=== PATIENT | male | born 1970 | race Caucasian/White ===

== ENCOUNTER 2019-08-11 17:50 | Outpatient (CLI) | payer OTHER, SELFPAY ==
--- NOTE | ~2019-08-11 | XR_ITS ---
EXAMINATION: XR chest 2V EXAM DATE: 08/11/2019 18:09 INDICATION: Cough for one month. TECHNIQUE: Frontal and lateral projections of the chest obtained and reviewed. There is no prior tay dy for comparison. FINDINGS: The lungs are clear. There are no pleural effusions. The cardiomediastinal silhouette is within normal limits. There is no pneumothorax suspected. The bones and soft tissues are unremarkab le. IMPRESSION: Unremarkable chest x-ray exam. Reviewed, dictated and finalized at location A.
== END 2019-08-11 17:51 | disposition home or self-care (01) ==
LOC: ANHIMG 17:58
PROVIDERS: PCP Family Medicine; Visit Provider Family Medicine
DX: R05 Cough (principal)
CPT/HCPCS: 71046

== ENCOUNTER 2022-06-24 09:55 | Outpatient (CLI) | payer OTHER, SELFPAY ==
--- NOTE | ~2022-06-24 | MR_ITS ---
MRI of the abdomen: Clinical indication: Hepatic lesion. Technique: Coronal SSFSE ARC, WATER:coronal LAVA-FLEX, Coronal 2D FIESTA FatSat, Axial SSFSE BH ARC, Axial 3D DualEcho BH, Axial SSFSE-IR, Axial DWI b=500, Axial 2D FIESTA FatSat, pre and dynamic postco ntrast Axial LAVA ARC, postcontrast Coronal In and Opposed phase LAVA FLEX. Following intravenous adm inistration of 20 cc MultiHance gadolinium, T1-weighted fat-sat imaging was performed in the axial an d coronal planes. Findings: There is a 4.5 x 4.1 cm mass in the posterior medial, superior right hepatic lobe. This les ion is T1 hypointense, heterogeneously hyperintense on fluid sensitive sequences, and demonstrates pe ripheral, progressive, predominantly peripheral ring enhancement. There are multiple additional small er enhancing lesions, which are best seen on postcontrast images, the second largest lesion at the ex treme dome of the liver measuring 2.9 cm in diameter. There are several additional smaller subcentime ter enhancing lesions in the liver, not clearly visualized on noncontrast sequences. There is diffuse signal drop off in the remainder of the liver on out of phase images relative to in phase images, consistent with background diffuse fatty infiltration of the liver. Gallbladder is unremarkable. The common bile duct is nondilated. No filling defects are seen within t he CBD. No evidence of intrahepatic biliary ductal dilatation. The pancreatic duct is normal in size. Spleen, pancreas, adrenals, kidneys appear normal. The aorta and the paraaortic regions appear normal . Impression: Multiple hepatic masses, as detailed above, most consistent with hepatic metastatic disease. Largest lesion measures 4.5 x 4.1 cm. Correlate with any other relevant clinical history or recent imaging ex aminations. Consider tissue sampling as indicated to establish histologic diagnosis, although percuta neous biopsy may be difficult due to the relative superior location of the sizable lesions. Background diffuse fatty infiltration of the liver. Reviewed, dictated and finalized at [facility]. Impression: Multiple hepatic masses, as detailed above, most consistent with hepatic metast atic disease. Largest lesion measures 4.5 x 4.1 cm. Correlate with any other re levant clinical history or recent imaging examinations. Consider tissue samplin g as indicated to establish histologic diagnosis, although percutaneous biopsy may be difficult due to the relative superior location of the sizable lesions. Background diffuse fatty infiltration of the liver.
== END 2022-06-24 09:56 | disposition home or self-care (01) ==
PROVIDERS: PCP Family Medicine; Visit Provider Physician Assistant
DX: K76.9 Liver disease, unspecified (principal)
CPT/HCPCS: 74183; A9577

== ENCOUNTER 2022-06-26 08:17 | Outpatient (CLI) | payer OTHER, SELFPAY ==
[2022-06-26 10:59] LABS: Alanine Aminotransferase 57 U/L (6-50); Albumin Level 4.7 g/dL (3.5-5.1); Alkaline Phosphatase 128 U/L (38-126); Aspartate Amino Transferase 82 U/L (17-59); Bilirubin,Total 1.1 mg/dL (0.2-1.3)
[2022-06-26 11:23] LABS: Carcinoembryonic Antigen 0.9 ng/mL (0.0-3.0); Prostate Specific Antigen 0.6 ng/mL (< OR = 4.0)
[2022-06-28 19:27] LABS: GGT 155 U/L (3-95)
[2022-06-30 14:41] LABS: Alpha Fetoprotein Tumor Marker 5.4 ng/mL (<6.1)
== END 2022-06-26 08:18 | disposition home or self-care (01) ==
LOC: ANHLAB 08:20
PROVIDERS: PCP Family Medicine; Visit Provider Family Medicine
DX: R16.0 Hepatomegaly, not elsewhere classified (principal); Z12.5 Encounter for screening for malignant neoplasm of prostate
CPT/HCPCS: 36415; 80076; 82105; 82378; 82977; 84153; G0103

== ENCOUNTER 2022-09-03 13:30 | Outpatient (RCR) | payer OTHER, SELFPAY ==
[2022-08-01 10:02] VITALS: BMI 42.0
[2022-08-01 10:05] VITALS: BMI 42.0
== END 2022-09-19 10:53 | disposition home or self-care (01) ==
LOC: ANHDMC 13:30
PROVIDERS: PCP Family Medicine; Visit Provider Physician Assistant
DX: E11.9 Type 2 diabetes mellitus without complications (principal); Z71.89 Other specified counseling; Z71.3 Dietary counseling and surveillance
CPT/HCPCS: 97802; G0108